=== PATIENT | male | born 1995 | race Caucasian/White ===

== ENCOUNTER 2017-06-03 19:22 | Emergency (ER) | payer SELFPAY ==
[2017-06-03 19:28] VITALS: TEMP 98.1
--- NOTE | 2017-06-03 19:34 | EDPHY ---
H & P Time Seen by Provider: 06/03/17 19:27 HPI/ROS: 21-year-old male presents complaining of cough for 6 days productive yellow phelgm, also has noted sharp stabbing chest pain that worsens with cough. No fever or chills. No nausea, no vomiting no diarrhea. He denies abdominal pain. He has no recent hospitalizations is and is not currently on medication. He does state when he was a small child he believes that he was admitted to the hospital for an asthmatic bronchitis. Review of systems As per HPI General no fever no chills no weakness HEENT no eye pain no eye discharge. No eye redness, no sore throat Respiratory positive productive cough no shortness of breath Cardiac positive chest pain, no peripheral edema GI no abdominal pain, no diarrhea, no constipation, no nausea, no vomiting no flank pain, no hematuria, no dysuria Musculoskeletal no myalgias, no joint pain Heme no easy bruising, no easy bleeding Endo no polyuria, no polydipsia Skin no rashes, no pruritus Neuro no syncope, no dizziness, no headaches Psych is no suicidal ideation, no homicidal ideation Past Medical/Surgical History: Bronchitis Social History: Denies alcohol, tobacco or drug use Smoking Status: Never smoked Physical Exam: 21-year-old male, coarse cough Alert and oriented nontoxic appearance, no acute distress afebrile Atraumatic normocephalic Extraocular muscles intact, anicteric Nares mild yellowish discharge Oropharynx mild erythema no tonsillar swelling no exudate no uvular deviation, tolerating own secretions Neck supple no lymphadenopathy Lungs clear to auscultation bilaterally, scattered wheeze Heart regular rate and rhythm Abdomen normoactive bowel sounds soft nontender Extremities no cyanosis clubbing or edema Skin no rash Constitutional: Initial Vital Signs Temperature (C) 36.7 C 06/03/17 19:25 Heart Rate 78 06/03/17 19:25 Respiratory Rate 16 06/03/17 19:25 Blood Pressure 130/80 H 06/03/17 19:25 O2 Sat (%) 96 06/03/17 19:25 O2 Delivery Mode Room Air Allergies/Adverse Reactions: No Known Allergies Allergy (Verified 06/03/17 19:27) Home Medications: Medication Instructions Recorded NO HOME MEDICATIONS 03/30/11 levOFLOXACIN [levAQUIN (*)] 750 mg PO DAILY #5 tab 06/03/17 predniSONE 40 mg PO DAILY 4 Days #8 tablet 06/03/17 Medical Decision Making - Diagnostics Imaging Results: Imaging Impressions Chest X-Ray 06/03/17 19:38 Impression: Left lower lobe segmental pneumonia. ED Course/Re-evaluation: Patient seen and evaluated for cough of 6 days duration. Chest x-ray Left lower lobe pneumonia Influenza negative Patient given DuoNeb with resolution of wheeze. Also given prednisone 60 mg, levofloxacin 750 mg 1st dose while in emergency department Impression Early small left lower lobe pneumonia Plan Rx for prednisone 40 mg p.o. Q.day x4 days beginning tomorrow Levofloxacin 750 mg p.o. Q.day x5 days Albuterol q.4 hours p.r.n. Follow-up [facility] and/or PCP Differential Diagnosis: Bronchitis, influenza, pneumonia, URI, viral syndrome, pneumothorax - Data Points Laboratory Results: 06/03/17 19:52 Influenza A,B Rapid NEGATIVE FOR FLU (NEGATIVE) Medications Given: Discontinued Medications Albuterol Sulfate (Proventil Inh Prepack) 1 mdi TAKEHOME EDNOW ONE Stop: 06/03/17 20:23 Last Admin: 06/03/17 20:25 Dose: 1 mdi Albuterol/Ipratropium (Duoneb) 3 ml IH EDNOW ONE Stop: 06/03/17 19:39 Last Admin: 06/03/17 19:39 Dose: 3 ml Levofloxacin (Levaquin) 750 mg PO EDNOW ONE PRN Reason: Protocol Stop: 06/03/17 20:09 Last Admin: 06/03/17 20:12 Dose: 750 mg Prednisone (Prednisone) 60 mg PO EDNOW ONE Stop: 06/03/17 20:08 Last Admin: 06/03/17 20:12 Dose: 60 mg Departure - Departure Disposition: Home, Routine, Self-Care Clinical Impression: Pneumonia Condition: Good Instructions: Albuterol (By breathing), Prednisone (By mouth), Levofloxacin ( By mouth), Community Acquired Pneumonia (ED) Referrals: NONE *PRIMARY CARE P,. [Primary Care Provider] - As per Instructions [facility] [Provider Group] - As per Instructions Prescriptions: levOFLOXACIN [levAQUIN (*)] 750 mg PO DAILY #5 tab predniSONE 40 mg PO DAILY 4 Days #8 tablet
[2017-06-03] MEDS ORDERED: IPRATROPIUM/ALBUTEROL 3 ML DEYVIAL IH ONE (19:38)
[2017-06-03] MEDS ORDERED: predniSONE 20 MG TAB PO ONE (20:07)
[2017-06-03] MEDS ORDERED: ALBUTEROL INH PREPACK MDI TAKEHOME ONE (20:22)
[2017-06-03 20:25] VITALS: BP 125/75; PULSE 78; RESP 18; O2SAT 95
== END 2017-06-03 20:32 | disposition home or self-care (01) ==
LOC: CED 19:22
DX: J18.9 Pneumonia, unspecified organism (principal)
CPT/HCPCS: 71046-PO; 87400-PO; J7512